=== PATIENT | female | born 1960 | race Caucasian/White ===

== ENCOUNTER → 2018-11-05 | Outpatient (CLI) | payer BC ==
--- NOTE | 2018-11-06 10:50 | Diagnostic Imaging Report ---
MRI of the thoracic and lumbar spine without IV contrast. History: Chronic back pain Comparison studies: MRI of the lumbar and thoracic spine 01/18/2011 and 02/18/2015 Technique: Sagittal, coronal and axial T2 , sagittal T1 and IR of the thoracic and lumbar spine, axial spin density oblique of the lumbar spine. Intravenous contrast: None Findings: Number of lumbar vertebral bodies:5. 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 Alignment: Normal lordosis of the lumbar spine, normal kyphosis of the thoracic spine. Minimal grade 1 retrolisthesis of L4 over L5, stable.No scoliosis. Soft tissues: No T2 hyperintense paraspinal inflammatory changes. Partially visualized right T2 round hyperintense lesions, these may related to cysts or hemangiomas. Paraspinal muscles: No signal abnormalities. No atrophy. Lower thoracic cord:Normal in signal and morphology. The tip of the conus is at T12-L1. Cauda equina: No masses. No arachnoiditis. Vertebrae: Normal in height and signal intensity. No compression fractures, infection or neoplasm. Degenerative changes: Thoracic spine: 1. No significant degenerative changes. Grossly patent canal and foramina Lumbar spine: L1-L2: No abnormalities. L2-L3: No abnormalities. L3-L4: Mild disc degeneration with loss of T2 signal. Asymmetric left disc bulge with superimposed left foraminal annular fissure and mild facet hypertrophy results in no significant canal stenosis or foraminal. 5 mm laterally projecting synovial cyst from the right facet joint. L4-L5: Mild disc degeneration with loss of T2 signal. Mild disc bulge and facet hypertrophy with patent canal and minimal foraminal narrowing. L5-S1: Patent canal and foramina bilateral pseudoarthrosis of L5 transverse processes and sacral alae. Additional findings: None IMPRESSION: Transitional vertebra with sacralization of L5. Mild disc degeneration from L2 through L5 without endplate changes. Mild facet hypertrophy at the lower lumbar spine. Grossly patent canal and foramina. Stable from previous examination. No significant degenerative changes of the thoracic without significant canal stenosis or foraminal narrowing. Stable from previous exam. Signed by: DR Raheem Tse M.D. on 11/06/2018 10:47 AM
== END ==
LOC: MRI 15:14
PROVIDERS: ATTEND Family Medicine
DX: M54.5 Low back pain (principal); M43.10 Spondylolisthesis, site unspecified; G89.29 Other chronic pain
CPT/HCPCS: 72146; 72148

== ENCOUNTER → 2018-12-08 | Outpatient (CLI) | payer BC ==
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
== END ==
LOC: CT 15:36
PROVIDERS: ATTEND Family Medicine
DX: M25.532 Pain in left wrist (principal); S60.212A Contusion of left wrist, initial encounter; R93.7 Abnormal findings on diagnostic imaging of other parts of musculoskeletal system

== ENCOUNTER → 2021-03-14 | Outpatient (CLI) | payer BC ==
[~2021-03-14] MED LIST: IOPAMIDOL 370 MG/ML 200 ML INFUS..BTL INJ ONE; METOPROLOL TARTRATE 25 MG TAB ONE; METOPROLOL TARTRATE INJ 1 MG/ML VIAL ONE; NITROGLYCERIN 0.4 MG SUBL ONE; SODIUM CHLORIDE 0.9% 100 ML ONE; SODIUM CHLORIDE 0.9% 250ML 250 ML ONE
== END ==
LOC: CT 07:58
PROVIDERS: ATTEND Internal Medicine Cardiovascular Disease
DX: I25.10 Atherosclerotic heart disease of native coronary artery without angina pectoris (principal); R94.39 Abnormal result of other cardiovascular function study
CPT/HCPCS: 75574; J7050 ×2; Q9967